=== PATIENT | male | born 1945 | race Caucasian/White ===

== ENCOUNTER → 2016-11-22 | Outpatient (CLI) | payer BC ==
[~2016-11-22] MED LIST: ALBUAER2 INH; ASPI81TA28 PO; CHOL100010 PO; DEXT30TA7 PO; DILT180C70 PO; FLV1 PO; INSPMPNVLG SQ; ISOS60TA25 PO; LEVO112T4 PO; LEVO1TAB33 PO; LEVO88TA3 PO; LISI5TAB PO; LOSA50TA54 PO; MAGN1CAP2 PO; NVLGI/PEN SQ; PANT40TA PO; PRAM1TAB6 PO; PRED20TA2 PO; SPIR50TA3 PO; THIA100T11 PO; TRIA0.1C20; VGR50 PO
--- NOTE | 2016-11-22 08:59 | DIAGNOSTIC IMAGING REPORT ---
CHEST 2 VIEWS ROUTINE CLINICAL HISTORY: Persistent cough, chest pain. COMPARISON STUDY: 11/07/2014 FINDINGS: The cardiac and mediastinal contours are normal. There is no evidence of focal pulmonary consolidation. There is no evidence of failure. No pleural effusions are visualized.[ There are multiple old left-sided rib fractures. There are mild bibasal atelectatic changes. IMPRESSION: Mild bibasilar atelectasis. No evidence of failure. No evidence of lobar consolidation. Electronically signed by: Humble Dawson M.D. 11/22/2016 8:58 AM Dictated Date/Time: 11/22/2016 8:57 AM
[2016-11-22 09:36] LABS: BASO % 0.5 %; BASO ABS # 0.05 K/uL (0-0.2); COMPLETE YES; HEMATOCRIT 37.2 % (42-52); IG% 0.4 %; LYMPH % 23.7 %; LYMPH ABS # 2.51 K/uL (1.2-3.4); MEAN CELL VOLUME 93.9 fL (80-100); MEAN CORPUSCULAR HEMOGLOBIN 32.1 pg (25-34); MEAN CORPUSCULAR HGB CONC 34.1 g/dl (32-36); MEAN PLATELET VOLUME 10.4 fL (7.4-10.4); MONO % 6.9 %; NEUT % 63.5 %; PLATELET COUNT 329 K/uL (130-400); RED BLOOD COUNT 3.96 M/uL (4.7-6.1); WHITE BLOOD COUNT 10.57 K/uL (4.8-10.8)
== END | disposition home or self-care (01) ==
LOC: C.RAD1850 08:32
PROVIDERS: ATTEND Family Medicine
DX: R05 Cough (principal); R07.9 Chest pain, unspecified

== ENCOUNTER → 2016-12-18 | Outpatient (CLI) | payer BC ==
[2016-12-18 09:52] LABS: ALT/SGPT 20 U/L (12-78); BLOOD UREA NITROGEN 21 mg/dl (7-18); BUN/CREATININE RATIO 17.6 (10-20); CALCIUM 8.9 mg/dl (8.5-10.1); CARBON DIOXIDE 28 mmol/L (21-32); CHLORIDE 107 mmol/L (98-107); CHOLESTEROL 160 mg/dl (0-200); GLUCOSE 123 mg/dl (70-99); POTASSIUM 4.3 mmol/L (3.5-5.1); SODIUM 140 mmol/L (136-145); TRIGLYCERIDES 47 mg/dl (0-150); VERY LOW DENSITY LIPOPROT CALC 9 mg/dl
[2016-12-18 09:55] LABS: ALB/GLOB RATIO 1.2 (0.9-2); ALKALINE PHOSPHATASE 109 U/L (45-117); AST/SGOT 11 U/L (15-37); CHOLESTEROL/HDL RATIO 2.2; HDL CHOLESTEROL 74 mg/dl; LDL CHOLESTEROL CALCULATED 77 mg/dl
== END | disposition home or self-care (01) ==
LOC: C.LAB1850 07:11
PROVIDERS: ATTEND Family Medicine
DX: E78.5 Hyperlipidemia, unspecified (principal); N18.3 Chronic kidney disease, stage 3 (moderate); E10.29 Type 1 diabetes mellitus with other diabetic kidney complication; E10.65 Type 1 diabetes mellitus with hyperglycemia; E10.49 Type 1 diabetes mellitus with other diabetic neurological complication

== ENCOUNTER → 2016-12-27 | Outpatient (CLI) | payer BC ==
--- NOTE | 2016-12-27 09:52 | DIAGNOSTIC IMAGING REPORT ---
CHEST 2 VIEWS ROUTINE CLINICAL HISTORY: Acute bronchitis. COMPARISON STUDY: Chest radiograph November 22, 2016. FINDINGS: There are multiple old left rib fractures. Hazy left basilar opacity suggests atelectasis. Cardiac size is normal. Mediastinal contours are normal. There is no evidence of pulmonary edema. IMPRESSION: No acute findings. No change in appearance of the chest. Electronically signed by: Kulwant Chase M.D. 12/27/2016 9:51 AM Dictated Date/Time: 12/27/2016 9:49 AM
== END | disposition home or self-care (01) ==
LOC: C.RAD1850 09:28
PROVIDERS: ATTEND Family Medicine
DX: J20.9 Acute bronchitis, unspecified (principal)

== ENCOUNTER → 2017-01-13 | Outpatient (CLI) | payer BC ==
--- NOTE | 2017-01-13 15:13 | DIAGNOSTIC IMAGING REPORT ---
CHEST 2 VIEWS ROUTINE CLINICAL HISTORY: R05 dyspnea COMPARISON STUDY: 12/27/2016 FINDINGS: Slight parenchymal fibrotic changes similar compared to the prior study. Multiple old left-sided rib fractures. Some improvement in aeration left base. Lungs currently are considered clear. IMPRESSION: No acute process. Chronic changes as described. Electronically signed by: Haim Jensen M.D. 01/13/2017 3:10 PM Dictated Date/Time: 01/13/2017 3:10 PM
== END | disposition home or self-care (01) ==
LOC: C.RAD1850 14:53
PROVIDERS: ATTEND Family Medicine
DX: R05 Cough (principal)

== ENCOUNTER → 2017-01-21 | Outpatient (CLI) | payer BC ==
--- NOTE | 2017-01-21 16:07 | MYOCARDIAL PERFUSION SCAN ---
PRIMARY CARE PHYSICIAN: Dr. Long. REQUESTING PHYSICIAN: Dr. Chowdhury. TYPE OF STUDY: One-day nuclear medicine technetium-99m myocardial perfusion study. INDICATIONS: Chest pain, dyspnea on exertion. EKG: Baseline EKG shows normal sinus rhythm at a ventricular rate of 70 with first-degree AV block and questionable septal infarct. STRESS EKG: The patient exercised for 3 minutes and 26 seconds. Exercise was discontinued due to dyspnea. During recovery, the patient developed chest tightness. His heart rate fritz from 77 to 110 representing 74% of maximum predicted heart rate. With exercise he had [address] depressions, most pronounced during recovery, ST depressions were horizontal to downsloping most prominent in the inferior and lateral leads. ST changes persisted up to 14 minutes into recovery. TECHNIQUE: For the stress portion of the study 32.0 mCi of technetium-99m Cardiolite IV was injected at 11:40 a.m. on 01/21/2017. Fifteen minutes following the injection, imaging of the heart was performed in multiple projections. For the rest portion of the study, 10.5 mCi of technetium-99m Cardiolite was injected IV at 9:40 a.m. One hour following the injection, imaging of the heart was performed in the same projections. FINDINGS: Rotating raw images were reviewed in detail. There was mild vertical motion more notable on the rest than stress images. There was mild diaphragmatic attenuation, more notable on the stress than rest images and minimal uptake impacting the inferior imaging border of the heart. There was no significant extra cardiac pathologic uptake. The short axis, vertical long axis, and horizontal long axis images were reviewed in detail. There was visual apparent TID. Perfusion imaging showed a large moderate in severity reversible perfusion defect involving the inferolateral wall from the base to mid segment as well as the apical lateral inferior and true apex. Summed difference score was 9 representing 13% of myocardium at risk. The LV was borderline dilated with an end-diastolic volume of 152 mL. There was mild LV dysfunction with an EF of 44% with inferolateral hypokinesis. IMPRESSION: 1. Positive exercise myocardial perfusion scan for ischemia. Large, moderate in severity, reversible perfusion defect involving the inferolateral wall and apical lateral inferior and true apical segments. Summed difference score of 9 representing 13% of myocardium at risk. 2. Positive exercise stress EKG for ischemia at 74% maximum predicted heart rate with [address] depressions in the inferolateral leads. 3. Below average functional capacity, exercised for 3 minutes and 26 seconds with limiting dyspnea and chest tightness occurring in recovery. Mathew treadmill score of negative 11 suggesting a high risk test. 4. Borderline left ventricular dilatation with mild left ventricular dysfunction, ejection fraction of 44% and mild inferolateral hypokinesis. 5. Overall these study findings together suggest a high risk study for ischemia and cardiac events. Dr. Chowdhury was notified of test results. [facility]
== END | disposition home or self-care (01) ==
LOC: C.NUCL 08:52
PROVIDERS: ATTEND Internal Medicine Clinical Cardiac Electrophysiology
DX: R07.9 Chest pain, unspecified (principal)

== ENCOUNTER → 2017-01-27 | Day surgery (SDC) | payer BC ==
[2017-01-24 09:33] LABS: HEMATOCRIT 37.7 % (42-52); MEAN CELL VOLUME 94.3 fL (80-100); MEAN CORPUSCULAR HEMOGLOBIN 32.3 pg (25-34); MEAN CORPUSCULAR HGB CONC 34.2 g/dl (32-36); MEAN PLATELET VOLUME 10.5 fL (7.4-10.4); PLATELET COUNT 358 K/uL (130-400); WHITE BLOOD COUNT 11.11 K/uL (4.8-10.8)
[2017-01-24 09:43] LABS: PROTHROMBIN TIME (PATIENT) 10.9 SECONDS (9.0-12.0)
[2017-01-24 09:57] LABS: ESTIMATED AVERAGE GLUCOSE 212 mg/dl; HA1C FLAG Normal (Normal)
[2017-01-24 10:19] LABS: BLOOD UREA NITROGEN 25 mg/dl (7-18); BUN/CREATININE RATIO 19.6 (10-20); CALCIUM 9.3 mg/dl (8.5-10.1); CARBON DIOXIDE 26 mmol/L (21-32); CHLORIDE 108 mmol/L (98-107); GLUCOSE 156 mg/dl (70-99); POTASSIUM 4.1 mmol/L (3.5-5.1); SODIUM 142 mmol/L (136-145)
[~2017-01-27] VITALS: Ht 170.2 cm; Wt 82.0 kg
[~2017-01-27] MED LIST changes: +ASPIRIN 325 MG ECTAB PO ONE; +FENTANYL CITRATE INJ 50 MCG/1 ML 2 ML VIAL ONE; +HEPARIN SOD (PORCINE) 1000 UNIT/ML 10 ML VIAL ONE; +MIDAZOLAM HCL 1 MG/ML 2ML VIAL ONE; +NITROGLYCERIN 0.4 MG SL PER TAB CHARGE SL PRN; +NITROGLYCERIN/D5W 100MCG/ML 20ML SYR ONE; +NiCARDipine HCL INJ 2.5 MG/ML 10 ML AMP ONE; +SODIUM CHLORIDE 0.9% 1000ML 1,000 ML IV SCH
[2017-01-27 07:14] VITALS: BP 163/68; PULSE 80; TEMP 36.5; O2SAT 95; Ht 170.2 cm; Wt 82.0 kg
--- NOTE | 2017-01-27 07:24 | History & Physical Bridge Note ---
H&P Re-Evaluation Bridge Note: I have examined the patient, reviewed the History & Physical and in the interval since the performance of the History & Physical I have noted the following changes of clinical significance: Still with sinus congestion. SOme POLANCO. Exertional CP and dyspnea.
--- NOTE | 2017-01-27 07:25 | Procedure Note ---
Pre-Mod Sedation Assessment General Date of Moderate Sedation: January 27, 2017. Review Cardiovascular: regular rate, rhythm, + systolic murmur Lungs: lungs clear Pre-Sedation Airway Assessment Oral Cavity: WNL Able to Visualize Vocal Cords: No Short Thick Neck: No Hx of Sleep Apnea: No Smoking Status: Current Every Day Smoker Mallampati Classification: Class III ASA Classification: Class III Procedure Planning Contraindications-for Mod Sed: None Yes Notes The planned sedation has been discussed with the patient and consent obtained. I have identified the patient, determined the appropriateness of sedation and have assessed the patient immediately prior to the procedure. All medicine(s) and interventions are by my order.
[2017-01-27 10:15] VITALS: BP 142/78; PULSE 83; O2SAT 94
--- NOTE | 2017-01-27 10:18 | Procedure Note ---
Post-Mod Sedation Assessment General Date of Moderate Sedation January 27, 2017. Vital Signs: Vital Signs Past 12 Hours Date Time Temp Pulse Resp B/P Pulse Ox O2 Delivery O2 Flow Rate FiO2 01/27/17 10:00 83 16 131/70 94 Room Air 01/27/17 09:45 79 16 134/68 94 Room Air 01/27/17 09:30 79 16 140/71 94 Room Air 01/27/17 09:15 81 16 142/68 95 Room Air 01/27/17 09:00 81 16 120/68 95 Room Air 01/27/17 08:50 81 16 137/70 95 Room Air 01/27/17 08:35 81 16 151/73 95 Room Air 01/27/17 08:20 80 16 130/85 95 Room Air 01/27/17 07:14 36.5 80 16 163/68 95 Room Air Review - Discharge Criteria Vital Signs Stable: Yes Alert/Oriented/Conversant: Yes Returned to Baseline Mental St: Yes Nausea Absent/Minimal: Yes Pain/Discomfort/Absent/Minimal: Yes Normal/Baseline Respirations: Yes Active Bleeding?: No Pt Received D/C Instructions: Yes Prescriptions Given: None Specific Proced. D/C Criteria Distal Pulses Present (Cardiac: Yes Groin site assessed-Card Cath: N/A Voided Prior To Discharge: Yes Discharged Patients Adult Escort/Transportation: Yes
--- NOTE | 2017-01-27 10:18 | Discharge Instructions ---
Discharge Instructions Procedure Procedure Date: January 27, 2017. Reason for Visit: *Dr Chowdhury To Do*, Abnormal Stress Test. Discharge Discharge Date: January 27, 2017. Discharge Diagnosis: CAD Last Recorded Wt (Kilograms): 82 Medications Stopped Medication(s): None Anesthesia Post Anesthesia Instructions: If you have had General Anesthesia or IV Sedation: * Do not drive today. * Resume driving when surgeon permits. * Do not make important decisions or sign legal documents today. * Call surgeon for: 1. Temperature elevations greater than 101 degrees F. 2. Uncontrollable pain. 3. Excessive bleeding. 4. Persistent nausea and vomiting. 5. Medication intolerance (nausea, vomiting or rash). * For nausea and vomiting use only clear liquids such as: tea, soda, bouillon until nausea subsides, then gradually increase diet as tolerated. * If you have any concerns or questions, call your surgeon's office. If physician is unavailable and it is an emergency, call 911 or go to the nearest emergency room. Instructions Activity Recommendations: limitations as noted below Recommended Home Diet: low sodium, diabetes diet Allergies: Coded Allergies: Penicillins (Verified Allergy, Unknown, 11/17/14) Provider Instructions Limit use of right wrist. NO strenuous activity. Report any new or worsening episodes of chest pain or shortness of breath. Follow Up Follow-up with: [facility] CT surgery [facility] Recommendations: Call your doctor if: * Temperature above 101 degrees * Pain not relieved by pain medicine ordered * There is increased drainage or redness from any incision * You have any unanswered questions or concerns. Your Doctors Instructions noted above were prepared by provider Mario Chowdhury. Patient Signature Section: Patient Instructions Signature Page Morgan Ortiz Patient (or Guardian) Signature/Date: I have read and understand the instructions given to me by my caregivers. Caregiver/RN/Doctor Signature/Date: The above-named patient and/or guardian has received patient instructions on this date. + Original Patient Signature Page (only) stays with chart. Please make copy for patient.
--- NOTE | 2017-01-27 17:04 | CARDIAC CATH REPORT ---
DATE OF SERVICE: 01/27/2017. PROCEDURE PERFORMED: Coronary angiography. STAFF TEST PILOT: Dr. Sarmad Chowdhury. INDICATIONS: Mr. Morgan Ortiz is a 71-year-old gentleman who has been experiencing episodes of exertional dyspnea and mild chest pressure. He has undergone noninvasive stress testing on a treadmill last week which revealed both EKG and perfusion evidence of cardiac ischemia. This was associated with his index symptoms. As such he was felt to be a good candidate for coronary angiography today. PROCEDURE IN DETAIL: The patient was informed of the risks, benefits and alternative to the intended procedure. He understood such and wished to proceed. He was taken to the cardiac catheterization suite in a fasting state. Conscious sedation was administered per protocol and the patient was monitored electrocardiographically throughout today's procedure. The right wrist area was prepped and draped in the usual sterile fashion. The right radial artery was then accessed using modified Seldinger technique and a 5 Yi arterial sheath was placed at this site over a guidewire. This sheath was used to facilitate passage of the cardiac catheter for engagement of the coronary artery. Coronary angiography was then performed in multiple orthogonal views prior to removal of the catheter and sheath. Hemostasis was achieved at the access site using manual pressure and a Hemoband. The patient tolerated the procedure well. There were no immediate complications. EQUIPMENT USED: 5 Yi Pride catheter. FINDINGS: HEMODYNAMICS: Opening aortic pressure was 109/49. CORONARY ANGIOGRAPHY: 1. LEFT MAIN. Left main coronary artery was relatively short and trifurcated into left anterior descending, a ramus intermedius and a circumflex branch. The left main itself has significant ostial stenosis. 2. LEFT ANTERIOR DESCENDING. Left anterior descending artery was a large transapical vessel which produced a medium sized first diagonal, smaller second diagonal and fairly diminutive third diagonal near the apex. There did appear to be 90% stenosis in the distal vessel around the apex and evidence of nonobstructive disease in the proximal portion of the LAD. 3. RAMUS INTERMEDIUS: This was a large vessel with what appeared to be a 70% stenosis at its ostium. It was also calcified. 4. LEFT CIRCUMFLEX. The left circumflex artery was a large vessel which supplied a good portion of the inferior wall. It was free of angiographically significant disease. 5. RIGHT CORONARY ARTERY. The right coronary artery was a relatively diminutive vessel which was codominant with the circumflex. There was no significant angiographic disease in this distribution. IMPRESSIONS: 1. Left main coronary disease. 2. Distal left anterior descending disease. 3. Codominant circulation involving the circumflex and right coronary artery. PLAN: Based on the patient's anatomy he will be referred for surgical revascularization. JORGE
== END | disposition home or self-care (01) ==
LOC: C.CATH 06:48
PROVIDERS: ATTEND Internal Medicine Clinical Cardiac Electrophysiology
DX: I25.10 Atherosclerotic heart disease of native coronary artery without angina pectoris (principal); I35.0 Nonrheumatic aortic (valve) stenosis; I12.9 Hypertensive chronic kidney disease with stage 1 through stage 4 chronic kidney disease, or unspecified chronic kidney disease; N18.3 Chronic kidney disease, stage 3 (moderate); J44.9 Chronic obstructive pulmonary disease, unspecified; F17.200 Nicotine dependence, unspecified, uncomplicated; F41.8 Other specified anxiety disorders; G25.81 Restless legs syndrome; E10.29 Type 1 diabetes mellitus with other diabetic kidney complication; E10.65 Type 1 diabetes mellitus with hyperglycemia; E78.5 Hyperlipidemia, unspecified; E83.42 Hypomagnesemia; E03.9 Hypothyroidism, unspecified; N52.9 Male erectile dysfunction, unspecified; M13.0 Polyarthritis, unspecified; I87.2 Venous insufficiency (chronic) (peripheral); Z82.49 Family history of ischemic heart disease and other diseases of the circulatory system; Z83.3 Family history of diabetes mellitus; Z80.1 Family history of malignant neoplasm of trachea, bronchus and lung; Z96.41 Presence of insulin pump (external) (internal); Z79.82 Long term (current) use of aspirin; Z79.899 Other long term (current) drug therapy